=== PATIENT | female | born 1945 | race Caucasian/White ===

== ENCOUNTER 2017-07-10 10:01 | Day surgery (SDC) | payer MEDICARE, BC ==
[~2017-07-10] VITALS: Ht 152.4 cm; Wt 55.3 kg
[~2017-07-10 10:01] MED LIST: ACID REDUCER10 MG PO; LORATADINE10 M2 PO; PAPAYA ENZYME1 EACH PO; QVAR8.7 G1 INH
--- NOTE | 2017-07-10 11:33 | NUR ---
[facility]17 1133 [facility] ANY PROBLEMS.
--- NOTE | 2017-07-10 12:17 | NUR ---
1210: PATIENT BACK IN DAY SURGERY ROOM FROM PACU. C/O PAIN IN THROAT 01/29. REQUESTS IBUPROFEN. GIVEN ICE WATER TO DRINK WELL HOT TEA. VS CHECKED. IV SITE WNL. SCDs ON. CALL LIGHT WITHIN REACH. 1215: CALL PLACED TO DR NEWMAN. ORDER RECEIVED FOR IBUPROFEN.
[2017-07-10] MEDS ORDERED: CIPRODEX OTIC7.5 ML AD (12:47)
--- NOTE | 2017-07-10 13:59 | NUR ---
1300: DISCHARGE INSTRUCTIONS GIVEN TO PATIENT. PATIENT ASSISTED OOB. WALKED ABOUT ROOM. GAIT STEADY. IV DC'D WNL. DRESSING APPLIED. PATIENT GETTING DRESSED. 1310: PATIENT DISCHARGED TO HOME WITH FRIEND VIA WHEELCHAIR.
--- NOTE | 2017-07-17 09:34 | OR ---
[facility] [address], [place] [address] Signed DATE OF PROCEDURE: 07/10/17 PREOPERATIVE DIAGNOSIS: Chronic right middle ear effusion. POSTOPERATIVE DIAGNOSIS: Chronic right middle ear effusion. PROCEDURE Right myringotomy and ventilation tube insertion with the T-tube and exam of the nasopharynx under anesthesia. SURGEON: Domingo Newman. ANESTHESIA: General Orotracheal, SHELBY Elizalde. PREOP HISTORY Shakira is a 71-year-old lady with a long history of right middle ear effusion. She has had several ear tubes placed in the past. These have extruded and she has recurrent effusion. She was taken to the operating room for the above-mentioned procedures after inability to visualize her nasopharynx in the office due to discomfort, septal deformity, etc. OPERATIVE PROCEDURE AND FINDINGS After informed consent, the patient was take n to the operating room, placed in the supine position where general orotracheal anesthesia was induced. The patient and procedure were verified. The patient received preoperative intranasal oxymetazoline. The patient was repositioned. The right ear was examined with the operating microscope. The eardrum was dull, retracted with a siddiqi middle ear effusion. Anterior, inferior radial myringotomy was made. Effusion was suctioned clear of the middle ear space. T-tube was placed in the myringotomy site. Cipro ophthalmic drops applied to the ear canal, cotton ball at the meatus. The patient was repositioned. McIvor mouth gag placed into suspension. A red rubber catheter passed through the nostril for elevation of soft palate. Mirror exam of the nasopharynx showed patent Eustachian tubes. No obstruction, no lesions, abnormalities, infection. No biopsies were taken. Catheter and mouth gag were removed. The patient was awakened, extubated and transported to recovery room in good condition. No complications. BLOOD LOSS: Minimal. SPECIMEN: None. Electronically Signed By: DOMINGO NEWMAN MD 07/17/17 0934 PATIENT NAME: SHAKIRA MAYBERRY OPERATIVE REPORT DATE OF : 45 PHYSICIAN: DOMINGO NEWMAN MD REPORT #: [id number] REPORT IS CONFIDENTIAL AND NOT TO BE RELEASED WITHOUT AUTHORIZATION [address] [address] Signed DRAINS: None. Domingo Newman MD GC/Jamie /[id number] cc: Adarsh Pittman MD Electronically Signed By: DOMINGO NEWMAN MD 07/17/17 0934 PATIENT NAME: SHAKIRA MAYBERRY OPERATIVE REPORT DATE OF : 45 PHYSICIAN: DOMINGO NEWMAN MD REPORT #: [id number] REPORT IS CONFIDENTIAL AND NOT TO BE RELEASED WITHOUT AUTHORIZATION
== END 2017-07-10 13:10 | disposition home or self-care (01) ==
LOC: DS 10:01
PROVIDERS: Otolaryngology
PROC: 099500Z Drainage of Right Middle Ear with Drainage Device, Open Approach (ICD-10-PCS; principal; 2017-07-10 12:45)
DX: H65.21 Chronic serous otitis media, right ear (principal); J45.909 Unspecified asthma, uncomplicated
CPT/HCPCS: 00740; J0330; J1100; J2250; J2405; J2704; J3010; J7120